=== PATIENT | female | born 1950 | race Two or more races ===

== ENCOUNTER 2018-06-27 23:51 | Emergency (ER) | payer OTHER ==
[2018-06-28] MEDS ORDERED: DIPHTH,PERTUSS(ACELL),TET 0.5 ML DISP.SYRIN IM ONE ×2 (00:18→00:30)
--- NOTE | 2018-06-28 00:19 | PDOC ---
Attending Attestation - HPI HPI: The patient is a 67 year old female, with a significant PMH of CABG, aortic valve replacement, and HTN, who presents to the emergency department today complaining of a laceration to the left third finger. Patient was cutting onions earlier today, when she cut her finger. Patient notes that is has not stopped bleeding, prompting her to come to the ED. She endorses cleaning the wound, but is unsure of when her last tetanus was. The patient denies chest pain, shortness of breath, headache and dizziness. Denies fever, chills, nausea, vomit, diarrhea and constipation. Denies dysuria, frequency, urgency and hematuria. Allergies: NKA Past surgical history: None reported Social history: PCP: Dr. Gardenia Walters 06/28/18 01:27 - Physicial Exam PE: GENERAL: The patient is in no acute distress. HEAD: Normal with no signs of trauma. EYES: PERRLA, EOMI, sclera anicteric, conjunctiva clear. ENT: Ears normal, nares patent, oropharynx clear without exudates. Moist mucous membranes. NECK: Normal range of motion, supple without lymphadenopathy, JVD, or masses. LUNGS: Breath sounds equal, clear to auscultation bilaterally. No wheezes, and no crackles. HEART:Regular rate and rhythm, normal S1 and S2 without murmur, rub or gallop. ABDOMEN: Soft, nontender, normoactive bowel sounds. No guarding, no rebound. No masses palpable. EXTREMITIES:+Superficial epidermal laceration of the radial side of the distal phalanx, which is continuously bleeding. Normal range of motion, no edema. No clubbing or cyanosis. No erythema, or tenderness. NEUROLOGICAL: Cranial nerves II through XII grossly intact. Normal speech. No focal neurological deficits. MUSCULOSKELETAL: Back non-tender to palpation, no CVA tenderness SKIN: Warm, Dry, normal turgor, no rashes or lesions noted. 06/28/18 01:27 - Medical Decision Making Documentation prepared by KINGSLEY Jacobo, acting as medical registrar for Caryn Alves MD. 06/28/18 01:27 <Kristen Parnell - Last Filed: 06/28/18 01:27> - Resident Resident Name: Cesar Gunn - ED Attending Attestation I have performed the following: I have examined & evaluated the patient, The case was reviewed & discussed with the resident, I agree w/resident's findings & plan, Exceptions are as noted - Medical Decision Making 67 yo F presenting for assessment of finger tip injury She is left hand dominant, was cutting onions and accidentally cut the left middle finger, amputating the superficial layer of skin This occurred at 6pm, pt washed the area completely after the incident She attempted to obtain hemostasis but was unable to do so She presents with bleeding from the finger Surgicel applied as well as pressure This was initially unsuccessful Additional surgicel applied with a pressure dressing with hemostasis Pt discharged by Dr gunn prior to my seeing her finger after pressure dressing No indication at this time for antibiotics 06/29/18 01:16 <Caryn Alves - Last Filed: 06/29/18 01:17>
[2018-06-28 00:24] VITALS: BP 130/67; PULSE 64; TEMP 98.3; BMI 29.6
--- NOTE | 2018-06-28 00:38 | PDOC ---
History of Present Illness - General Chief Complaint: Laceration Stated Complaint: FINGER LACERATION Time Seen by Provider: 06/28/18 00:11 History Source: Patient Exam Limitations: No Limitations - History of Present Illness Initial Comments: 06/28/18 00:34 Patient is a 67F with history of htn, CABG, aortic valve replacement here today complaining of a laceration to her left third finger. Patient states that she was cutting onions, and cleaned the wound afterwards. Neurologically intact. Event happened at 7pm today. Patient states she's coming in because the bleeding has not stopped. Denies chest pain, shortness of breath. Endorses minor headache. Takes aspirin, no blood thinners. Last tetanus unknown. Past History - Past Medical History Allergies/Adverse Reactions: Allergies Allergy/AdvReac Type Severity Reaction Status Date / Time No Known Drug Allergies Allergy Verified 01/25/15 18:15 Cardiac Disorders: Yes (HX HEART MURMUR) - Suicide/Smoking/Psychosocial Hx Smoking History: Never smoked Have you smoked in the past 12 months: No Information on smoking cessation initiated: No Hx Alcohol Use: No Drug/Substance Use Hx: No Substance Use Type: None Hx Substance Use Treatment: No Review of Systems - Review of Systems Able to Perform ROS?: Yes Comments:: 06/28/18 00:35 GENERAL/CONSTITUTIONAL: No fever or chills. No weakness. CARDIOVASCULAR: No chest pain or shortness of breath RESPIRATORY: No cough, wheezing, or hemoptysis. GASTROINTESTINAL: No nausea, vomiting, diarrhea or constipation. GENITOURINARY: No dysuria, frequency, or change in urination. MUSCULOSKELETAL: No joint or muscle swelling or pain. No neck or back pain. NEUROLOGIC: No headache, vertigo, loss of consciousness, or change in strength/ sensation. HEMATOLOGIC/LYMPHATIC: No anemia, easy bleeding, or history of blood clots. *Physical Exam - Vital Signs Last Vital Signs Temp Pulse Resp BP Pulse Ox 98.3 F 64 16 130/67 99 06/28/18 00:00 06/28/18 00:00 06/28/18 00:00 06/28/18 00:00 06/28/18 00:00 - Physical Exam Comments: 06/28/18 00:36 GENERAL: Awake, alert, and fully oriented, in no acute distress L HAND: 0.5x0.5 defect in left third finger on lateral aspect HEAD: No signs of trauma, normocephalic, atraumatic EYES: PERRLA, EOMI, sclera anicteric, conjunctiva clear ENT: Auricles normal inspection, hearing grossly normal, nares patent, oropharynx clear without exudates. Moist mucosa NECK: Normal ROM, supple, no lymphadenopathy, JVD, or masses LUNGS: No distress, speaks full sentences, clear to auscultation bilaterally HEART: Regular rate and rhythm, normal S1 and S2, no murmurs, rubs or gallops, peripheral pulses normal and equal bilaterally. NEUROLOGICAL: Cranial nerves II through XII grossly intact. Normal speech, normal gait, no focal sensorimotor deficits Moderate Sedation - Procedure Monitoring Vital Signs: Procedure Monitoring Vital Signs Temperature 98.3 F 06/28/18 00:00 Pulse Rate 64 06/28/18 00:00 Respiratory Rate 16 06/28/18 00:00 Blood Pressure 130/67 06/28/18 00:00 O2 Sat by Pulse Oximetry (%) 99 06/28/18 00:00 Medical Decision Making - Medical Decision Making 06/28/18 00:37 Patient is 67F here today with finger laceration. No blood thinners, no dm. Vitals normal and stable. Surgicell and pressure bandage applied. Tetanus given. Return precautions given. Will discharge with instructions to return with any signs of infectious symptoms. 06/28/18 01:14 Bleeding controlled. Pressure bandage removed. *DC/Admit/Observation/Transfer Diagnosis at time of Disposition: Finger laceration - Discharge Dispostion Disposition: HOME Condition at time of disposition: Good Decision to Admit order: No - Referrals Referrals: Gardenia Walters MD [Primary Care Provider] - - Patient Instructions Additional Instructions: Please return immediately if you have any new, worsening or concerning symptoms , especially fever, increasing redness and pain with movement of the finger. - Post Discharge Activity
== END 2018-06-28 01:20 | disposition home or self-care (01) ==
LOC: JER 23:51
PROC: 3E0234Z Introduction of Serum, Toxoid and Vaccine into Muscle, Percutaneous Approach (ICD-10-PCS; principal; 2018-06-27)
PROC: 0HQGXZZ Repair Left Hand Skin, External Approach (ICD-10-PCS; 2018-06-27)
DX: S61.213A Laceration without foreign body of left middle finger without damage to nail, initial encounter (principal); W26.0XXA Contact with knife, initial encounter; Y93.G1 Activity, food preparation and clean up; Y92.030 Kitchen in apartment as the place of occurrence of the external cause; Y99.8 Other external cause status; I25.10 Atherosclerotic heart disease of native coronary artery without angina pectoris; I10 Essential (primary) hypertension; Z95.1 Presence of aortocoronary bypass graft; Z95.2 Presence of prosthetic heart valve
CPT/HCPCS: 12001; 90471; 90715; 99282-25